=== PATIENT | male | born 1955 | race Caucasian/White ===

== ENCOUNTER 2018-04-24 08:23 | Day surgery (SDC) | payer OTHER ==
[~2018-04-24 08:23] MED LIST: CEFAZOLIN 1 GM INJ; KETOROLAC 30 MG INJ; LIDOCAINE 1% (MDV) 20 ML INJ; MIDAZOLAM 1 MG/ML 2 ML INJ; PHENYLephrine (100 MCG/ML) 5ML SYG; PROPOFOL 20 ML; ROPIVACAINE 0.5 % 30 ML VIAL; SOD CHLORIDE 0.9% 1,000 ML IV
[2018-04-24] MEDS ORDERED: LIDOCAINE 1% (MPF) 30 ML INJ (10:13)
[2018-04-24] MEDS ORDERED: BUPIVACAINE 0.25%/EPI (SDV) 30 ML INJ (10:13)
[2018-04-24] MEDS ORDERED: OXYCODONE/ACETAMINOPHEN (5/325) TAB PO ×2 (10:30)
[2018-04-24] MEDS ORDERED: ALBUTEROL 0.083% (NEB) 2.5 MG/3 ML AMP HHN (10:30)
[2018-04-24] MEDS ORDERED: HYDROmorphONE 1 MG/5 ML IV SYRINGE IV ×2 (10:30)
[2018-04-24] MEDS ORDERED: hydrALAzine 20 MG INJ IV (10:30)
[2018-04-24] MEDS ORDERED: FENTAnyl 50 MCG/ML VIAL IV ×2 (10:30)
[2018-04-24] MEDS ORDERED: DIPHENHYDRAMINE 50 MG INJ IV (10:30)
[2018-04-24] MEDS ORDERED: KETOROLAC 30 MG INJ IV (10:30)
[2018-04-24] MEDS ORDERED: ONDANSETRON 4 MG INJ IV (10:30)
[2018-04-24] MEDS ORDERED: MEPERIDINE 25 MG INJ IV (10:30)
[2018-04-24] MEDS ORDERED: EPHEDrine SULFATE 50 MG/5 ML SYG IV (10:30)
[2018-04-24] MEDS ORDERED: LABETALOL HCL 20MG INJ IV (10:30)
[2018-04-24] MEDS ORDERED: LIDOCAINE 2% (SDV) 5 ML INJ (10:31)
[2018-04-24] MEDS ORDERED: PROPOFOL 20 ML (10:31)
[2018-04-24] MEDS ORDERED: ROCURONIUM 50 MG INJ (10:31)
[2018-04-24] MEDS ORDERED: ONDANSETRON 4 MG INJ (10:34)
[2018-04-24] MEDS ORDERED: DEXAMETHASONE 4 MG/ML 1 ML INJ (10:34)
[2018-04-24] MEDS ORDERED: HYDROCODONE/APAP (5/325) TAB PO ×2 (11:00)
[2018-04-24] MEDS: LIDOCAINE 1% (MPF) 30 ML INJ INJ (11:10)
[2018-04-24] MEDS: BUPIVACAINE 0.25% (MPF) 30 ML INJ INJ (11:10)
[2018-04-24] MEDS: POLYMYXIN/BACITRACIN 1L IRRIG (11:55)
[2018-04-24] MEDS ORDERED: GLYCOPYRROLATE 0.4 MG INJ (12:45)
[2018-04-24] MEDS ORDERED: NEOSTIGMINE 3 MG/3 ML SYRINGE (12:45)
[2018-04-24] MEDS: CEFAZOLIN 2 GM/50 ML (PMX) 50 ML IVPB (12:58)
[2018-04-24] MEDS: FENTAnyl 50 MCG/ML VIAL IV (13:19)
[2018-04-24] MEDS: HYDROmorphONE 1 MG/5 ML IV SYRINGE IV (13:19)
== END 2018-04-24 15:10 | disposition home or self-care (01) ==
LOC: SDS 08:23
DX: K40.90 Unilateral inguinal hernia, without obstruction or gangrene, not specified as recurrent (principal); R00.1 Bradycardia, unspecified
CPT/HCPCS: 49505; 71045; 93005